=== PATIENT | male | born 1955 | race Caucasian/White ===

== ENCOUNTER 2020-01-05 17:26 | Emergency (ER) | payer BC, SELFPAY ==
[2020-01-05 17:34] VITALS: BP 148/86; PULSE 60; RESP 14; TEMP 36.8; O2SAT 98
--- NOTE | 2020-01-05 17:35 | ED.WOUNDLAC ---
HPI - Wound/Laceration General Chief Complaint: Wound/Laceration Stated Complaint: head injury Time Seen by Provider: 01/05/20 17:35 Source: patient, family and RN notes reviewed History of Present Illness HPI narrative: Patient is a 64-year-old male who presents the urgent care with complaints of a laceration to the top of the head. Patient states that he was at his daughter's house, kneeling underneath her metal mailbox and came up, slapping the top of his head on the corner of the metal mailbox. Patient states that it happened approximately 30 minutes ago. Patient denies of any loss of consciousness, headache, nausea, vomiting since the incident. Patient has held pressure and the wound is currently not bleeding. Patient is up-to-date on his tetanus shot. No other acute complaints. No acute distress noted. Patient read the plan of care. Related Data Home Medications Medication Instructions Recorded Confirmed escitalopram oxalate [Lexapro] 10 mg PO DAILY 01/05/20 01/05/20 esomeprazole magnesium [Nexium] 40 mg PO DAILY 01/05/20 01/05/20 lorazepam 0.5 mg PO DAILY PRN 01/05/20 01/05/20 Allergies Allergy/AdvReac Type Severity Reaction Status Date / Time codeine Allergy Rash Verified 01/05/20 17:43 Review of Systems Review of Systems: Narrative: CONSTITUTIONAL: Denies fever, chills, or sweats. EYES: Denies visual changes, redness, or discharge. ENT: Denies rhinorrhea, congestion, sore throat, or otalgia. CARDIOVASCULAR: Denies chest pain, palpitations, or edema. RESPIRATORY: Denies cough or dyspnea. GASTROINTESTINAL: Denies abdominal pain, nausea, vomiting, or diarrhea. GENITOURINARY: Denies dysuria or hematuria. SKIN: Reports of a laceration to the top of the head MUSCULOSKELETAL: Denies back pain, joint pain, or myalgia. NEUROLOGIC: Denies headache, numbness, or weakness. All other systems reviewed are negative, except as documented in HPI. PMFSH Comments At the time of my signature, I reviewed and agree with the nursing past medical, surgical, social, and family history. There is no relevant family history pertinent to the patient complaint. Exam Narrative: Exam Narrative: GENERAL: This is a well-nourished, well-developed patient, in no apparent distress. HEAD: normocephalic, atraumatic. EYES: PERRL. Sclera clear/white. Vision is grossly intact. EARS: External ears normal NOSE: External nose normal with no obvious nasal discharge, nares without redness, no rhinorrhea. THROAT: Mucous membranes moist NECK: Neck supple SKIN: 2.5 total length with 1.25 cm linear and 1.25 cm linear lacerations coming to a point to the left of the midline directly on top of head NEURO: awake, alert, and oriented to person, place and time. There were no obvious focal neurologic abnormalities. EXTREMITIES: No clubbing, cyanosis, or edema. Course Vital Signs Vital signs: Vital Signs Temperature 98.3 F 01/05/20 17:34 Pulse Rate 60 01/05/20 17:34 Respiratory Rate 14 01/05/20 17:34 Blood Pressure 148/86 H 01/05/20 17:34 Pulse Oximetry 98 01/05/20 17:34 Temperature 98.3 F 01/05/20 17:34 Pulse Rate 60 01/05/20 17:34 Respiratory Rate 14 01/05/20 17:34 Blood Pressure 148/86 H 01/05/20 17:34 Pulse Oximetry 98 01/05/20 17:34 Reviewed?patient is informed that they may have pre-hypertension or hypertension based on a blood pressure reading in the department. I recommend the patient call the primary care provider listed on their discharge instructions or a physician of their choice this week to arrange follow-up for further evaluation of possible pre-hypertension or hypertension. Procedures Laceration Laceration 1: Site: scalp Side (If applicable): left Size (cm): 2.5 Description: irregular ====== Skin Level ====== ====== Subcutaneous Layer ====== ====== Muscle Layer ====== ====== Tendon Layer ====== Dressing: Superficial laceration to the left s
== END 2020-01-05 17:57 | disposition home or self-care (01) ==
PROVIDERS: Emergency Provider Nurse Practitioner Family
DX: S01.01XA Laceration without foreign body of scalp, initial encounter (principal); R03.0 Elevated blood-pressure reading, without diagnosis of hypertension; K21.9 Gastro-esophageal reflux disease without esophagitis; Z85.46 Personal history of malignant neoplasm of prostate; Z90.79 Acquired absence of other genital organ(s); F41.9 Anxiety disorder, unspecified; W22.8XXA Striking against or struck by other objects, initial encounter
CPT/HCPCS: 99212; G0463

== ENCOUNTER 2021-06-15 14:21 | Emergency (ER) | payer MEDICARE, SELFPAY ==
--- NOTE | 2021-06-15 14:30 | ED.WOUNDLAC ---
HPI - Wound/Laceration General Chief Complaint: Wound/Laceration Stated Complaint: lt hand index finger laceration Time Seen by Provider: 06/15/21 14:30 Source: patient, RN notes reviewed and old records reviewed Mode of arrival: ambulatory Limitations: no limitations History of Present Illness HPI narrative: 66 year old male accompanied by presents to express care with laceration to his left index finger after injury while using boot trimmer within past hour at his daughters home. He has 1.5cm laceration to the left index finger on sherman aspect between the DIP and PIP region of finger, with full mobility,sensation and circulation intact to left index finger, Patient states had Tetanus update 2 years ago. No acute bleeding from finger at this time, dressing and ice bag in place upon arrival to clinic. Related Data Home Medications Medication Instructions Recorded Confirmed escitalopram oxalate [Lexapro] 10 mg PO DAILY 01/05/20 01/05/20 esomeprazole magnesium [Nexium] 40 mg PO DAILY 01/05/20 01/05/20 lorazepam 0.5 mg PO DAILY PRN 01/05/20 01/05/20 Allergies Allergy/AdvReac Type Severity Reaction Status Date / Time codeine Allergy Rash Verified 01/05/20 17:43 Review of Systems Review of Systems: CONSTITUTIONAL: Denies fever, chills, or sweats. EYES: Denies visual changes, redness, or discharge. ENT: Denies rhinorrhea, congestion, sore throat, or otalgia. CARDIOVASCULAR: Denies chest pain, palpitations, or edema. RESPIRATORY: Denies cough or dyspnea. GASTROINTESTINAL: Denies abdominal pain, nausea, vomiting, or diarrhea. GENITOURINARY: Denies dysuria or hematuria. SKIN: Denies rash or itching. Positive for laceration to left index finger MUSCULOSKELETAL: Denies back pain, joint pain, or myalgia. NEUROLOGIC: Denies headache, numbness, or weakness. PSYCHIATRIC: History of anxiety or depression. All systems reviewed & are unremarkable except as noted in HPI and below PMFSH Past Medical History Medical History (Updated 06/15/21 @ 15:24 by Tiana Flores NP) Abdominal abscess removed at [place] Anxiety and depression Fracture of right ankle GERD (gastroesophageal reflux disease) Kidney stones Prostate cancer Surgical History Surgical History (Updated 06/15/21 @ 15:25 by Tiana Flores NP) History of arthroscopy of left shoulder 4 shoulder surgeries History of elbow surgery left History of radical prostatectomy History of thumb surgery right Social History Social History (Updated 06/15/21 @ 15:39 by Tiana Flores NP) Smoking status: Never smoker Alcohol intake: current Alcohol use details: rare social Substance use: never Living arrangements: with family Occupation/Education: retired Gender identity (if verbalized by the patient): Male Comments At time of signature, agree with nursing past medical, surgical, social and family history. There is no relevant family history pertinent to the presenting complaint Exam Narrative: GENERAL: Well-appearing, well-nourished, and in no acute distress. HEAD: Normocephalic, atraumatic. EYES: PERRLA and EOMI. ENT: Nares clear, no rhinorrhea or epistaxis. Mucous membranes moist. TM'snormal throat pink with no exudates or lesions or tonsil enlargement. NECK: Supple.no lymphadenopathy CHEST: Clear to auscultation. No respiratory distress. SAO2 100% on room air HEART: Regular rate and rhythm. No murmur heard. Normal peripheral pulses. ABDOMEN: Soft, nontender, nondistended, normal active bowel sounds. EXTREMITIES: Normal range of motion. No edema. laceration to left sherman aspect of left index finger between DIP and PIP 1.5m linear length with patient able to demonstrate full mobility of finger, denies any tingling or numbness to his finger or left hand, strong left radial pulse present. SKIN: Warm, dry, no rash. NEURO: No focal deficits. Alert and oriented x3. Procedures Laceration left index finger: Date: 06/15/21 Ti
[2021-06-15 14:35] VITALS: BP 139/87; PULSE 88; RESP 16; TEMP 37.1; O2SAT 100
== END 2021-06-15 15:23 | disposition home or self-care (01) ==
PROVIDERS: Emergency Provider Registered Nurse; PCP Internal Medicine
DX: S61.211A Laceration without foreign body of left index finger without damage to nail, initial encounter (principal); W29.3XXA Contact with powered garden and outdoor hand tools and machinery, initial encounter; K21.9 Gastro-esophageal reflux disease without esophagitis; Z85.46 Personal history of malignant neoplasm of prostate; Z90.79 Acquired absence of other genital organ(s)
CPT/HCPCS: 12001; 99213; G0463